=== PATIENT | male | born 1980 | race Hispanic/Latino ===

== ENCOUNTER 2018-11-18 23:15 | Emergency (ER) | payer OTHER ==
--- NOTE | 2018-11-19 00:18 | Emergency Department Report ---
ED Seizure HPI - General Stated Complaint: SEIZURE Time Seen by Provider: 11/19/18 00:04 - History of Present Illness Initial Comments: Patient is 38 years old male with history of seizure. Patient brought to the emergency room for evaluation of one episode of seizure, generalized tonic colonic seizure had no injury. Patient stated that he was taking phenytek 600 mg but he did not have any seizure for 1 year and his doctor took him out of the medicine. Patient stated that he has been dealing with a lot of stress but denied any depression or suicidal thoughts. Patient is alert and oriented 3 in no acute distress. MD Complaint: seizure -: Sudden Description of Episode: loss of consciousness, tonic-clonic movement, post-event confusion Witnessed:: Yes Trauma: No Seizure History: known seizure disorder Place: work Possible Precipitating Event: none Associated Symptoms: denies other symptoms ED Review of Systems ROS: Stated complaint: SEIZURE Other details as noted in HPI Comment: All other systems reviewed and negative Constitutional: denies: chills, fever Respiratory: denies: cough, orthopnea, shortness of breath, SOB with exertion, SOB at rest, wheezing Cardiovascular: denies: chest pain, palpitations Gastrointestinal: denies: abdominal pain, nausea, vomiting Neurological: denies: headache, weakness, numbness ED Physical Exam - General Limitations: No Limitations General appearance: alert, in no apparent distress - Head Head exam: Present: atraumatic, normocephalic, normal inspection - Eye Eye exam: Present: normal appearance, PERRL - ENT ENT exam: Present: normal exam, normal orophraynx, mucous membranes moist - Neck Neck exam: Present: normal inspection, full ROM. Absent: tenderness, meningismus, lymphadenopathy, thyromegaly - Respiratory Respiratory exam: Present: normal lung sounds bilaterally - Cardiovascular Cardiovascular Exam: Present: regular rate, normal rhythm, normal heart sounds - GI/Abdominal GI/Abdominal exam: Present: soft, normal bowel sounds. Absent: distended, tenderness, guarding, rebound, rigid, organomegaly, mass, bruit, pulsatile mass, hernia - Extremities Exam Extremities exam: Present: normal inspection, full ROM, normal capillary refill. Absent: tenderness, pedal edema, calf tenderness - Back Exam Back exam: Present: normal inspection, full ROM. Absent: tenderness, CVA tenderness (R), CVA tenderness (L), muscle spasm, paraspinal tenderness, vertebral tenderness - Neurological Exam Neurological exam: Present: alert, oriented X3, CN II-XII intact, normal gait, reflexes normal - Skin Skin exam: Present: warm, intact, normal color ED Course - Reevaluation(s) Reevaluation #1: 11/19/18 00:35 While in the ER patient developed a generalized tonic-clonic seizure and became post ictal. The patient received 2 mg of Ativan IV. ED Medical Decision Making - Lab Data Result diagrams: 11/19/18 00:25 11/19/18 00:25 - Medical Decision Making Patient is 38 years old male with history of seizure. Patient brought to the emergency room for evaluation of one episode of seizure, generalized tonic colonic seizure had no injury. Patient stated that he was taking phenytek 600 mg but he did not have any seizure for 1 year and his doctor took him out of the medicine. Patient stated that he has been dealing with a lot of stress but denied any depression or suicidal thoughts. Patient is alert and oriented 3 in no acute distress. Patient had one episode of seizure in the emergency room. Patient received 2 mg of Ativan IV. No seizure activity observed since then. Patient also received 1 g of phenytoin. I will restart the patient denied to him and advised the patient to follow up with his neurologist in the next 2-3 days and to return to the ER if symptoms are not improved. Critical care attestation.: If time is entered above; I have spent that time in minutes in the direct care of this critically ill patient, excluding procedure time. ED Disposition Clinical Impression: Seizure Disposition: DC-01 TO HOME OR SELFCARE Is pt being admited?: No Condition: Stable Instructions: Recurrent Seizures Adult (ED) Referrals: PRIMARY CARE, [Primary Care Provider] - 3-5 Days
[2018-11-19] MEDS ORDERED: DILANTIN 1,000 MG in NACL 0.9% 250ML 250 ML IV ONE (00:20)
[2018-11-19] MEDS ORDERED: ATIVAN ONE (00:32)
[2018-11-19 00:36] LABS: Basophils # (Auto) 0.1 K/mm3 (0.0-0.1); Basophils % (Auto) 0.4 % (0.0-1.8); Eosinophils % (Auto) 0.3 % (0.0-4.3); Hemoglobin 14.7 gm/dl (11.8-15.2); Lymphocytes % (Auto) 14.8 % (13.4-35.0); Mean Corpuscular HGB Conc 34 % (32-34); Mean Corpuscular Volume 92 fl (84-94); Monocytes # (Auto) 0.8 K/mm3 (0.0-0.8); Monocytes % (Auto) 5.7 % (0.0-7.3); Platelet Count 216 K/mm3 (140-440); Red Blood Count 4.79 M/mm3 (3.65-5.03); Red Cell Distribution Width 14.1 % (13.2-15.2)
[2018-11-19 00:58] LABS: BUN/Creatinine Ratio 13; Blood Urea Nitrogen 8 mg/dL (9-20); Calcium 9.1 mg/dL (8.4-10.2); Hemolysis Index 4
[2018-11-19 01:02] LABS: Alanine Aminotransferase 14 units/L (7-56); Albumin 4.2 g/dL (3.9-5)
[2018-11-19 01:04] LABS: Bilirubin,Direct < 0.2 mg/dL (0-0.2)
[2018-11-19] MEDS ORDERED: ATIVAN IV ONE (03:59)
[2018-11-19 20:10] VITALS: BP 101/81
== END 2018-11-19 03:27 | disposition home or self-care (01) ==
LOC: ED 23:15
DX: G40.909 Epilepsy, unspecified, not intractable, without status epilepticus (principal)
CPT/HCPCS: 36415; 80048; 80076; 85025; 96365; 96375; 99284; J1165; J2060; J2560; J7050